=== PATIENT | female | born 1955 | race Caucasian/White ===

== ENCOUNTER 2020-06-19 16:26 | Day surgery (SDCO) | payer MEDICARE ==
[2020-06-19 17:18] LABS: BASOPHIL 0.4 % (0-2); EOSINOPHIL 2.5 % (0-5); HCT 44.9 % (37.0-47.0); HGB 14.2 g/dl (12.5-16.0); LYMPHOCYTE 23.2 % (15-48); MCH 30.3 pg (25.0-31.0); MCHC 31.6 g/dL (32.0-36.0); MCV 95.7 fL (78.0-100.0); MONOCYTE 4.7 % (0-12); MPV 10.8 fL (6.0-9.5); NEUTROPHIL 68.8 % (41-80); NRBC 0; PLT 252 K/uL (150-400); RBC 4.69 M/uL (4.20-5.40); RDW 12.4 % (11.5-14.0); WBC 11.4 K/uL (4.0-10.5)
[2020-06-19 17:22] LABS: INR 0.96 (0.9-1.2); PROTHROMBIN TIME 12.1 SECONDS (11.4-13.6)
[2020-06-19 17:24] LABS: ALBUMIN 3.4 g/dL (3.4-5.0); BILIRUBIN - TOTAL 0.4 mg/dL (0.2-1.0); BUN/CREAT RATIO (CALC) 10.9 RATIO; CREATININE 0.92 mg/dL (0.51-0.95); GLOBULIN (CALCULATION) 3.3 g/dL; POTASSIUM 3.6 mmol/L (3.5-5.1); TOTAL PROTEIN 6.7 g/dL (6.4-8.2)
[2020-06-19] MEDS ORDERED: IMDUR 30MG TABL30 MG PO (22:17)
[2020-06-19] MEDS ORDERED: NEURONTIN300 MG PO (22:17)
[2020-06-19] MEDS ORDERED: RANEXA500 MG PO (22:18)
[2020-06-19] MEDS ORDERED: ASPIRIN CHEWABL81 MG PO (22:18)
[2020-06-19] MEDS ORDERED: PLAVIX75 MG PO (22:19)
[2020-06-19] MEDS ORDERED: TOPROL XL 50 MG50 MG PO (22:19)
[2020-06-19] MEDS ORDERED: PAXIL40 MG PO (22:20)
[2020-06-20 04:39] LABS: BASOPHIL 0.3 % (0-2); EOSINOPHIL 2.7 % (0-5); HCT 40.4 % (37.0-47.0); HGB 12.8 g/dl (12.5-16.0); LYMPHOCYTE 26.6 % (15-48); MCH 30.5 pg (25.0-31.0); MCHC 31.7 g/dL (32.0-36.0); MCV 96.2 fL (78.0-100.0); NEUTROPHIL 63.1 % (41-80); NRBC 0; PLT 230 K/uL (150-400); RDW 12.3 % (11.5-14.0); WBC 10.6 K/uL (4.0-10.5)
[2020-06-20 05:08] LABS: BUN/CREAT RATIO (CALC) 13.4 RATIO; CREATININE 0.97 mg/dL (0.51-0.95); POTASSIUM 3.6 mmol/L (3.5-5.1)
[2020-06-20] MEDS ORDERED: PRINIVIL20 MG PO (08:51)
[2020-06-20] MEDS ORDERED: LEVEMIR100 UNIT/1 SC (08:54)
[2020-06-20] MEDS ORDERED: HUMALOG100 UNIT/2 SC (08:55)
[2020-06-20] MEDS ORDERED: IMDUR 30MG TABL30 MG PO (15:03)
[2020-06-20] MEDS ORDERED: NITROQUIK SL0.4 MG SL (15:50)
== END 2020-06-20 16:58 | disposition home or self-care (01) ==
LOC: FER 16:26 → FTCU 20:17
PROVIDERS: Emergency Medicine; Nurse Practitioner; ADMIT Internal Medicine
DX: R07.89 Other chest pain (principal); I25.10 Atherosclerotic heart disease of native coronary artery without angina pectoris; E11.40 Type 2 diabetes mellitus with diabetic neuropathy, unspecified; E78.5 Hyperlipidemia, unspecified; J44.9 Chronic obstructive pulmonary disease, unspecified; F17.210 Nicotine dependence, cigarettes, uncomplicated; F41.1 Generalized anxiety disorder; F32.9 Major depressive disorder, single episode, unspecified; I10 Essential (primary) hypertension; I25.2 Old myocardial infarction; L40.9 Psoriasis, unspecified; M19.90 Unspecified osteoarthritis, unspecified site; G47.00 Insomnia, unspecified; G47.10 Hypersomnia, unspecified; I27.20 Pulmonary hypertension, unspecified; I37.1 Nonrheumatic pulmonary valve insufficiency; E66.9 Obesity, unspecified; Z68.41 Body mass index [BMI] 40.0-44.9, adult; Z79.02 Long term (current) use of antithrombotics/antiplatelets; Z79.4 Long term (current) use of insulin; Z79.82 Long term (current) use of aspirin; Z79.899 Other long term (current) drug therapy; Z88.0 Allergy status to penicillin; Z88.1 Allergy status to other antibiotic agents; Z88.2 Allergy status to sulfonamides; Z95.1 Presence of aortocoronary bypass graft; Z95.5 Presence of coronary angioplasty implant and graft; Z20.822 Contact with and (suspected) exposure to COVID-19
CPT/HCPCS: 36415; 71045; 80048; 80053; 80061; 82962; 84484; 85025; 85610; 85730; 93005; G0378; J0360; J1170; J1650; J2270; J2405; Q0163; U0002